=== PATIENT | female | born 1965 | race Two or more races ===

== ENCOUNTER 2019-07-19 13:04 | Emergency (ER) | payer MEDICAID ==
[~2019-07-19] VITALS: Ht 157.5 cm; Wt 66.7 kg
[2019-07-19 13:55] LABS: Basophils # (auto) 0 uL; Basophils % (auto) 0.4 % (0.0-2.0); Eosinophils # (auto) 0.1 uL; Eosinophils % (auto) 0.6 % (0.0-7.0); Hematocrit 38.9 % (36.0-46.0); Hemoglobin 12.9 g/dL (12.2-16.2); Lymphocytes # (auto) 3.9 uL; Lymphocytes % (auto) 29.3 % (10.0-50.0); Mean Corpuscular Hemoglobin 26.9 pg (28.0-32.0); Mean Corpuscular Hgb Conc. 33.2 g/dL (32.0-36.0); Monocytes # (auto) 1.1 uL; Neutrophils # (auto) 8.2 uL; Neutrophils % (auto) 61.7 % (37.0-80.0); Nucleated Red Blood Cells % 0.1 %; Platelet Count (auto) 394 10^3/uL (140-450); Red Blood Cells 4.81 10^6/uL (4.0-5.20); Red Cell Distribution Width 14.6 % (11.8-14.3); White Blood Cell 13.3 10^3/uL (4.4-10.8)
[2019-07-19 14:00] LABS: Urine Bacteria NONE SEEN /hpf (None Seen); Urine Blood Negative /uL (Negative); Urine Specific Gravity 1.005 (1.001-1.035); Urine WBC 22 /hpf (0 - 5)
[2019-07-19 14:16] LABS: Albumin 3.9 g/dL (3.4-5.0); BUN/Creatinine Ratio 21.9; Calcium 9.2 mg/dL (8.5-10.1); Potassium 4.1 mmol/L (3.5-5.1)
[2019-07-19 14:19] LABS: Bilirubin, Total 0.2 mg/dL (0.2-1.0)
[2019-07-19] MEDS ORDERED: SODIUM CHLORIDE 0.9% 1,000 ML IV ONE (15:30)
[2019-07-19 19:26] VITALS: BP 141/89
== END 2019-07-19 19:27 | disposition home or self-care (01) ==
LOC: ER 13:04
DX: N39.0 Urinary tract infection, site not specified (principal); F32.9 Major depressive disorder, single episode, unspecified; F41.9 Anxiety disorder, unspecified; E78.5 Hyperlipidemia, unspecified
CPT/HCPCS: 36415; 80053; 81001; 81025; 85025